=== PATIENT | male | born 1980 | race African-American/Black ===

== ENCOUNTER 2017-12-04 12:15 | Emergency (ER) | payer SELFPAY ==
[~2017-12-04] VITALS: Ht 188 cm; Wt 100.0 kg
[2017-12-04] MEDS ORDERED: IBUPROFEN 600MG TABLET PO ONE (15:30)
[2017-12-04] MEDS ORDERED: BACITRACIN ZINC OINT UDPKT TOP ONE (15:30)
[2017-12-04] MEDS ORDERED: LIDOCAINE HCL/PF 1% 2ML VIAL INFIL ONE (15:30)
[2017-12-04] MEDS ORDERED: KETOROLAC 30MG/ML VIAL IV STA (15:35)
[2017-12-04] MEDS ORDERED: CEFTRIAXONE 1 G PREMIX 50 ML IV ONE (15:45)
[2017-12-04] MEDS ORDERED: LIDOCAINE HCL/PF 1% 10 MG/ML 5ML VIAL IJ ONE (15:45)
[2017-12-04 16:38] VITALS: BP 154/84
== END 2017-12-04 18:38 | disposition home or self-care (01) ==
LOC: ER 12:25
DX: L02.01 Cutaneous abscess of face (principal); K08.89 Other specified disorders of teeth and supporting structures
CPT/HCPCS: 96365; 96366; 96375; 99285; J0696; J1885; J3490; Z7610